=== PATIENT | female | born 1985 | race Caucasian/White ===

== ENCOUNTER 2016-12-02 04:31 | Emergency (ER) | payer BC, OTHER ==
[2016-12-02 05:05] LABS: Appearance,Urine Clear (Clear); Bilirubin,Urine Negative (Negative); Glucose,Urine (UA) Negative (Negative); Ketones,Urine Negative (Negative); Leukocyte Esterase,Urine Negative (Negative); Nitrite,Urine Negative (Negative); Protein,Urine Negative (Negative); Specific Gravity,Urine 1.017 (1.001-1.035); UA Billing (MACRO vs. MICRO) CHEM; Urobilinogen,Urine <2.0 mg/dL (<2.0)
[2016-12-02] MEDS ORDERED: SODIUM CHLORIDE 0.9% 500 ML IV ONE (05:08)
[2016-12-02] MEDS ORDERED: SODIUM CHLORIDE 0.9% 1,000 ML IV ONE (05:08)
[2016-12-02] MEDS ORDERED: METOCLOPRAMIDE 5 MG/ML 2 ML VIAL IVP STA (05:09)
[2016-12-02] MEDS ORDERED: ACETAMINOPHEN IV (For NPO) 1,000 MG in SALINE 1 100ML.BAG IVPB STA (05:09)
--- NOTE | 2016-12-02 05:12 | ED ---
General Adult HPI - General Source: patient, RN notes reviewed Mode of arrival: ambulatory Limitations: no limitations <Reji Perez - Last Filed: 12/02/16 07:07> <Joshua Etienne - Last Filed: 12/02/16 09:39> - General Chief complaint: Abdominal Pain Stated complaint: abd pain-19 wks Time Seen by Provider: 12/02/16 04:59 - History of Present Illness Initial comments: Patient is a pleasant 31-year-old female presenting to the emergency department complaining of abdominal discomfort. Onset was around 10 PM. Symptoms have progressed since that time. Discomfort was lower abdomen however now is also right upper abdomen. Patient has had some nausea and vomiting. No fevers. No dysuria or hematuria. Patient is approximately 19 weeks gravid. She to P1. Patient had anemia with her first . No constipation or diarrhea. ( Reji Perez) - Related Data Home Medications Medication Instructions Recorded Confirmed Pnv with Ca,No.72/Iron/FA [Pnv 1 tab PO DAILY 12/02/16 12/02/16 Plus Multivit Tab] Allergies Allergy/AdvReac Type Severity Reaction Status Date / Time lorazepam [From Ativan] Allergy Unknown Verified 12/02/16 07:37 Review of Systems ROS Other: All systems not noted in ROS Statement are negative. Constitutional: Denies: fever, chills Eyes: Denies: eye pain ENT: Denies: ear pain Respiratory: Denies: cough Cardiovascular: Denies: chest pain Endocrine: Denies: fatigue Gastrointestinal: Reports: abdominal pain, nausea, vomiting Genitourinary: Denies: dysuria, hematuria, discharge Musculoskeletal: Denies: back pain Skin: Denies: rash Neurological: Denies: weakness <Reji Perez - Last Filed: 12/02/16 07:07> ROS Other: All systems not noted in ROS Statement are negative. <Joshua Etienne - Last Filed: 12/02/16 09:39> ROS Statement: Those systems with pertinent positive or pertinent negative responses have been documented in the HPI. Past Medical History Past Medical History: Asthma History of Any Multi-Drug Resistant Organisms: None Reported Additional Past Surgical History / Comment(s): Neck surgery, Degenertive disk disease, arthritis spinal stenosis, herniated disc Past Psychological History: Anxiety, Depression Smoking Status: Current every day smoker Past Alcohol Use History: None Reported Past Drug Use History: None Reported <Reji Perez - Last Filed: 12/02/16 07:07> General Exam Limitations: no limitations General appearance: alert, in no apparent distress Head exam: Present: atraumatic Eye exam: Present: normal appearance, PERRL ENT exam: Present: normal oropharynx Neck exam: Present: normal inspection Respiratory exam: Present: normal lung sounds bilaterally Cardiovascular Exam: Present: regular rate, normal rhythm Expanded Peripheral pulses: 2+: Dorsalis Pedis (R), Dorsalis Pedis (L) GI/Abdominal exam: Present: soft, distended (Uterine distention around the umbilicus), tenderness (Mild suprapubic tenderness. Mild to moderate right upper quadrant tenderness.), normal bowel sounds. Absent: guarding, rebound, rigid External exam: Present: normal external exam, other (RN Elton is present) Speculum exam: Present: normal speculum exam By manual exam: Present: uterine enlargement. Absent: cervical motion tenderness, adnexal tenderness, adnexal mass Extremities exam: Present: normal inspection. Absent: pedal edema, calf tenderness Back exam: Present: CVA tenderness (R) (Mild discomfort just below the right CVA ) Neurological exam: Present: alert Psychiatric exam: Present: normal affect, normal mood Skin exam: Absent: rash <Reji Perez - Last Filed: 12/02/16 07:07> Course <Reji Perez - Last Filed: 12/02/16 07:07> <Joshua Etienne - Last Filed: 12/02/16 09:39> Vital Signs 12/02/16 12/02/16 12/02/16 04:34 06:31 08:34 Temperature 98.0 F 98.1 F 98.1 F Pulse Rate 89 82 88 Respiratory 18 16 16 Rate Blood Pressure 122/70 118/63 112/59 O2 Sat by Pulse 99 98 98 Oximetry - Reevaluation(s) Reevaluation #1: 12/02/16 07:[address] Etienne pending ultrasound and reexamination. (Reji Perez) Medical Decision Making - Lab Data Result diagrams: 12/02/16 05:35 12/02/16 05:35 <Reji Perez - Last Filed: 12/02/16 07:07> - Lab Data Result diagrams: 12/02/16 05:35 12/02/16 05:35 - Radiology Data Radiology results: report reviewed (I did review the ultrasound and report The Gallbladder Is Negative for Acute Findings the Ultrasound the Uterus Shows 18 Week 1 Day Viable Single Intrauterine . There Was a Contraction Noted to Be Getting.), image reviewed <Joshua Etienne - Last Filed: 12/02/16 09:39> - Medical Decision Making Patient is feeling improved I did discuss findings with her and her . We discharged with copies of the ultrasound and report. She was scheduled to have an ultrasound done in 3 days. She is to contact her OB I did recommend pelvic rest no work for 2 days. She will return when necessary (Joshua Etienne) - Lab Data Lab Results 12/02/16 12/02/16 12/02/16 Range/Units 04:55 05:35 05:35 WBC 16.8 H (3.8-10.6) k/uL RBC 3.87 (3.80-5.40) m/uL Hgb 11.6 (11.4-16.0) gm/dL Hct 33.9 L (34.0-46.0) % MCV 87.7 (80.0-100.0) fL MCH 30.1 (25.0-35.0) pg MCHC 34.3 (31.0-37.0) g/dL RDW 13.2 (11.5-15.5) % Plt Count 297 (150-450) k/uL Neutrophils % 87 % Lymphocytes % 8 % Monocytes % 3 % Eosinophils % 1 % Basophils % 0 % Neutrophils # 14.7 H (1.3-7.7) k/uL Lymphocytes # 1.3 (1.0-4.8) k/uL Monocytes # 0.6 (0-1.0) k/uL Eosinophils # 0.1 (0-0.7) k/uL Basophils # 0.0 (0-0.2) k/uL APTT (22.0-30.0) sec Sodium (137-145) mmol/L Potassium (3.5-5.1) mmol/L Chloride (98-107) mmol/L Carbon Dioxide (22-30) mmol/L Anion Gap mmol/L BUN (7-17) mg/dL Creatinine (0.52-1.04) mg/dL Est GFR (MDRD) Af Amer (>60 ml/min/1.73 sqM) Est GFR (MDRD) Non-Af (>60 ml/min/1.73 sqM) Glucose (74-99) mg/dL Calcium (8.4-10.2) mg/dL Total Bilirubin (0.2-1.3) mg/dL AST (14-36) U/L ALT (9-52) U/L Alkaline Phosphatase (38-126) U/L Total Protein (6.3-8.2) g/dL Albumin (3.5-5.0) g/dL HCG, Quant mIU/mL Urine Color Yellow Urine Appearance Clear (Clear) Urine pH 6.0 (5.0-8.0) Ur Specific Bishop 1.017 (1.001-1.035) Urine Protein Negative (Negative) Urine Glucose (UA) Negative (Negative) Urine Ketones Negative (Negative) Urine Blood Negative (Negative) Urine Nitrate Negative (Negative) Urine Bilirubin Negative (Negative) Urine Urobilinogen <2.0 (<2.0) mg/dL Ur Leukocyte Esterase Negative (Negative) Trichomonas Ag (Rapid) (Negative) Blood Type O Positive Blood Type Recheck No 12/02/16 12/02/16 12/02/16 Range/Units 05:35 05:35 05:35 WBC (3.8-10.6) k/uL RBC (3.80-5.40) m/uL Hgb (11.4-16.0) gm/dL Hct (34.0-46.0) % MCV (80.0-100.0) fL MCH (25.0-35.0) pg MCHC (31.0-37.0) g/dL RDW (11.5-15.5) % Plt Count (150-450) k/uL Neutrophils % % Lymphocytes % % Monocytes % % Eosinophils % % Basophils % % Neutrophils # (1.3-7.7) k/uL Lymphocytes # (1.0-4.8) k/uL Monocytes # (0-1.0) k/uL Eosinophils # (0-0.7) k/uL Basophils # (0-0.2) k/uL APTT 23.2 (22.0-30.0) sec Sodium 134 L (137-145) mmol/L Potassium 4.1 (3.5-5.1) mmol/L Chloride 105 (98-107) mmol/L Carbon Dioxide 22 (22-30) mmol/L Anion Gap 7 mmol/L BUN 7 (7-17) mg/dL Creatinine 0.30 L (0.52-1.04) mg/dL Est GFR (MDRD) Af Amer >60 (>60 ml/min/1.73 sqM) Est GFR (MDRD) Non-Af >60 (>60 ml/min/1.73 sqM) Glucose 89 (74-99) mg/dL Calcium 8.5 (8.4-10.2) mg/dL Total Bilirubin 0.2 (0.2-1.3) mg/dL AST 22 (14-36) U/L ALT 43 (9-52) U/L Alkaline Phosphatase 82 (38-126) U/L Total Protein 5.9 L (6.3-8.2) g/dL Albumin 3.2 L (3.5-5.0) g/dL HCG, Quant 8648.5 mIU/mL Urine Color Urine Appearance (Clear) Urine pH (5.0-8.0) Ur Specific Bishop (1.001-1.035) Urine Protein (Negative) Urine Glucose (UA) (Negative) Urine Ketones (Negative) Urine Blood (Negative) Urine Nitrate (Negative) Urine Bilirubin (Negative) Urine Urobilinogen (<2.0) mg/dL Ur Leukocyte Esterase (Negative) Trichomonas Ag (Rapid) (Negative) Blood Type Blood Type Recheck 12/02/16 Range/Units 05:55 WBC (3.8-10.6) k/uL RBC (3.80-5.40) m/uL Hgb (11.4-16.0) gm/dL Hct (34.0-46.0) % MCV (80.0-100.0) fL MCH (25.0-35.0) pg MCHC (31.0-37.0) g/dL RDW (11.5-15.5) % Plt Count (150-450) k/uL Neutrophils % % Lymphocytes % % Monocytes % % Eosinophils % % Basophils % % Neutrophils # (1.3-7.7) k/uL Lymphocytes # (1.0-4.8) k/uL Monocytes # (0-1.0) k/uL Eosinophils # (0-0.7) k/uL Basophils # (0-0.2) k/uL APTT (22.0-30.0) sec Sodium (137-145) mmol/L Potassium (3.5-5.1) mmol/L Chloride (98-107) mmol/L Carbon Dioxide (22-30) mmol/L Anion Gap mmol/L BUN (7-17) mg/dL Creatinine (0.52-1.04) mg/dL Est GFR (MDRD) Af Amer (>60 ml/min/1.73 sqM) Est GFR (MDRD) Non-Af (>60 ml/min/1.73 sqM) Glucose (74-99) mg/dL Calcium (8.4-10.2) mg/dL Total Bilirubin (0.2-1.3) mg/dL AST (14-36) U/L ALT (9-52) U/L Alkaline Phosphatase (38-126) U/L Total Protein (6.3-8.2) g/dL Albumin (3.5-5.0) g/dL HCG, Quant mIU/mL Urine Color Urine Appearance (Clear) Urine pH (5.0-8.0) Ur Specific Bishop (1.001-1.035) Urine Protein (Negative) Urine Glucose (UA) (Negative) Urine Ketones (Negative) Urine Blood (Negative) Urine Nitrate (Negative) Urine Bilirubin (Negative) Urine Urobilinogen (<2.0) mg/dL Ur Leukocyte Esterase (Negative) Trichomonas Ag (Rapid) Negative (Negative) Blood Type Blood Type Recheck Disposition <Reji Perez - Last Filed: 12/02/16 07:07> <Joshua Etienne - Last Filed: 12/02/16 09:39> Clinical Impression: Uterine contractions, Intrauterine Disposition: HOME SELF-CARE Condition: Good Instructions: at 15 to 18 Weeks (ED), at 19 to 22 Weeks (ED ), Tee Neville Contractions (ED) Additional Instructions: Pelvic rest. Off work for 2 days. Follow-up with your [employer] this week.
[2016-12-02 05:51] LABS: Basophils % (A) 0 %; CH 30.5; CHCM 34.9; Eosinophils # (A) 0.1 k/uL (0-0.7); Eosinophils % (A) 1 %; HCT 33.9 % (34.0-46.0); HDW 2.84; HGB 11.6 gm/dL (11.4-16.0); Luc # (Auto) 0.13; Luc % (Auto) 1; Lymphocytes # (A) 1.3 k/uL (1.0-4.8); Lymphocytes % (A) 8 %; MCH 30.1 pg (25.0-35.0); MCHC 34.3 g/dL (31.0-37.0); MCV 87.7 fL (80.0-100.0); Mean Platelet Volume 6.9; Monocytes # (A) 0.6 k/uL (0-1.0); Monocytes % (A) 3 %; Neutrophils # (A) 14.7 k/uL (1.3-7.7); Neutrophils % (A) 87 %; RBC 3.87 m/uL (3.80-5.40); RDW 13.2 % (11.5-15.5); WBC 16.8 k/uL (3.8-10.6); WBC (Perox) 17.82
[2016-12-02 06:03] LABS: ALT 43 U/L (9-52); AST 22 U/L (14-36); Alkaline Phosphatase 82 U/L (38-126); Anion Gap 7 mmol/L; Blood Urea Nitrogen 7 mg/dL (7-17); Calcium 8.5 mg/dL (8.4-10.2); Carbon Dioxide 22 mmol/L (22-30); Chloride 105 mmol/L (98-107); Glucose 89 mg/dL (74-99); Non-African American GFR(MDRD) >60 (>60 ml/min/1.73 sqM); Potassium 4.1 mmol/L (3.5-5.1); Sodium 134 mmol/L (137-145); Total Bilirubin 0.2 mg/dL (0.2-1.3); Total Protein 5.9 g/dL (6.3-8.2)
[2016-12-02 06:33] VITALS: RESP 16
--- NOTE | 2016-12-02 08:35 | US ---
EXAMINATION TYPE: US gallbladder DATE OF EXAM: 12/02/2016 7:59 AM COMPARISON: NONE CLINICAL HISTORY: EC patient with RUQ,RLQ pain and pelvic cramps x 1 day, 18 weeks . EXAM MEASUREMENTS: Liver Length: 17.7cm Gallbladder Wall: 0.2cm CBD: 0.5cm Right Kidney: 11.1 x 4.4 x 4.6cm ANATOMY: Pancreas: head is within normal limits; Obscured by bowel gas Liver: Within normal limits Gallbladder: Within normal limits Evidence for sonographic Wild's sign: No CBD: Within normal limits Right Kidney: Within normal limits IMPRESSION: No significant abnormality appreciated.
--- NOTE | 2016-12-02 08:36 | US ---
EXAMINATION TYPE: US OB >= 14 wk fetus DATE OF EXAM: 12/02/2016 7:59 AM COMPARISON: None CLINICAL HISTORY: RUQ and RLQ pain, pelvic pressure x 1 day; smoker; TECHNIQUE: Transabdominal (TA) GESTATIONAL AGE / DATING Physician Established: (18 weeks/6 days) EDC: 04/29/2017 Dates by LMP: (18 weeks/6 days) EDC: 04/29/2017 Dates by First Scan: (today Dates by Current Scan: (18 weeks/ 1 day) EDC: 05/04/2017 SURVEY IUP: Single PLACENTA: Anterior PREVIA: No Previa; focal myometrial contraction was noted on posterior uterine wall at start of US LEO: 12.2 cm Normal CERVICAL LENGTH (transabdominal: norm > 3.0cm): 3.6 cm BIOMETRY PRESENTATION: Breech LIE: Oblique BPD: 4.1 cm 18 weeks / 3 days HC: 15.2 cm 18 weeks / 2 days AC: 12.6 cm 18 weeks / 2 days FL: 2.7 cm 18 weeks / 1 day ESTIMATED WEIGHT IN GRAMS: 229.4 grams ESTIMATED WEIGHT IN LBS/OZS: 0 lbs. 8 oz. WEIGHT PERCENTAGE BASED ON ESTABLISHED DATES: 14.5% HC/AC: 1.21 Normal FL/AC: 21.26 Normal HEART RATE: 157 bpm RHYTHM: Normal IMPRESSION: Single, live, IUP,18 weeks/ 1 day, EDC: 05/04/2017, HR 157bpm, focal myometrial contra ction was noted at start of US and subsided at exam's end at time of placenta survey and recheck.
[2016-12-02 10:08] VITALS: BP 122/63; PULSE 81; TEMP 98.3
== END 2016-12-02 10:08 | disposition home or self-care (01) ==
LOC: EC 04:31
DX: O60.02 Preterm labor without delivery, second trimester (principal); O99.332 Smoking (tobacco) complicating pregnancy, second trimester; F17.200 Nicotine dependence, unspecified, uncomplicated; Z3A.18 18 weeks gestation of pregnancy; Z88.8 Allergy status to other drugs, medicaments and biological substances
CPT/HCPCS: 36415; 86900; 86901; 80053; 87591; 87491; 85025; 85730; 81003; 84702; 87808; 87070; 76805; 76705; 99284; 96365; 96375; 96361 ×4; J2765; J0131; 87205